=== PATIENT | male | born 1975 | race Caucasian/White ===

== ENCOUNTER 2016-10-17 08:43 | Emergency (ER) | payer OTHER ==
[~2016-10-17] VITALS: Ht 170.2 cm; Wt 80.5 kg
[2016-10-17 08:44] VITALS: Ht 170.2 cm; Wt 80.5 kg
[2016-10-17] MEDS ORDERED: SOD CHLORIDE 0.9% 1,000 ML IV STA (09:28)
[2016-10-17] MEDS ORDERED: CEFTRIAXONE 1 GM/50 ML (PMX) 50 ML IVPB ONE (09:30)
[2016-10-17] MEDS ORDERED: VANCOMYCIN 1 GM (PMX) 250 ML IVPB SCH (09:30)
[2016-10-17] MEDS ORDERED: IBUPROFEN 600 MG TAB PO ONE (09:30)
--- NOTE | 2016-10-17 09:37 | ERA ---
ER Documentation Chief Complaint Date/Time DATE: 10/17/16 TIME: 09:34 Chief Complaint L foot abcess and swelling x 2 days HPI 41-year-old man complains of left lower extremity swelling, redness, pain 2 days. He has a history of Gbnmkgw-Ljgqi-Xaxmd syndrome and has chronic bilateral lower extremity paresthesias and generalized weakness. He has had tactile fevers 1 day, no vomiting or diarrhea, no chest pain or shortness of breath, no cough or sore throat, no URI symptoms. ROS All systems reviewed and are negative except as per history of present illness. Medications Home Meds No Active Prescriptions or Reported Meds Allergies Allergies: Coded Allergies: No Known Allergy (Unverified , 10/17/16) PMhx/Soc Lxwbkmr-Ptqog-Qkjpc syndrome and chronic bilateral lower extremity paresthesias and weakness FmHx Family History: No diabetes Physical Exam Vitals Vital Signs Date Time Temp Pulse Resp B/P Pulse Ox O2 Delivery O2 Flow Rate FiO2 10/17/16 11:50 99.6 104 20 129/66 99 Room Air 10/17/16 10:25 99.8 104 20 126/80 99 Room Air 10/17/16 08:44 99.2 122 20 134/77 99 Physical Exam GENERAL: Well-developed, well-nourished, febrile, in no apparent distress HEENT: Moist mucous membranes, pink conjunctiva, no cervical spine tenderness or step-off deformities, no goiter, no jaundice or icterus, extraocular movements intact without pain. No submandibular induration, and no pharyngeal erythema NEURO: Alert and oriented 3, cranial nerves II through XII intact bilaterally, pupils equal round reactive to light, no focal deficits or facial asymmetry, sensation intact distally Strength 5/5 in upper and lower extremities bilaterally CARDIAC: Tachycardic and regular no murmurs rubs or gallops LUNGS: Clear bilaterally no wheezing crackles or stridor ABDOMEN: Soft nontender, no guarding, no rigidity, no rebound, no psoas sign no obturator sign. Normoactive bowel sounds SKIN: Warm and dry to touch, there is diffuse induration and skin erythema to the anterior lower leg with a superficial ulceration, which is most likely the cause of his cellulitis. No purulent drainage, no lacerations, distal pulses equal bilateral EXTREMITIES: No clubbing cyanosis, right lower extremity appears unremarkable, left lower extremity is indurated and edematous. Distal pulses equal and bilateral PSYCH: Normal affect without agitation or irritability Result Diagram: 10/17/1635 10/17/1635 Results 24 hrs Laboratory Tests Test 10/17/16 09:35 White Blood Count 13.010^3/ul Red Blood Count 4.9210^6/ul Hemoglobin 14.0g/dl Hematocrit 42.3% Mean Corpuscular Volume 86.0fl Mean Corpuscular Hemoglobin 28.5pg Mean Corpuscular Hemoglobin Concent 33.1g/dl Red Cell Distribution Width 13.9% Platelet Count 31746^3/UL Mean Platelet Volume 11.1fl Neutrophils % 87.0% Lymphocytes % 4.5% Monocytes % 7.1% Eosinophils % 0.5% Basophils % 0.2% Nucleated Red Blood Cells % 0.0/100WBC Neutrophils # 11.310^3/ul Lymphocytes # 0.610^3/ul Monocytes # 0.910^3/ul Eosinophils # 0.110^3/ul Basophils # 0.010^3/ul Nucleated Red Blood Cells # 0.010^3/ul Prothrombin Time 13.3Sec Prothrombin Time Ratio 1.0 INR International Normalized Ratio 1.01 Sodium Level 139mmol/L Potassium Level 4.2mmol/L Chloride Level 97mmol/L Carbon Dioxide Level 25mmol/L Anion Gap 21 Blood Urea Nitrogen 11mg/dl Creatinine 0.73mg/dl Glucose Level 208mg/dl Calcium Level 9.0mg/dl Total Bilirubin 0.4mg/dl Direct Bilirubin 0.00mg/dl Indirect Bilirubin 0.4mg/dl Aspartate Amino Transf (AST/SGOT) 22IU/L Alanine Aminotransferase (ALT/SGPT) 38IU/L Alkaline Phosphatase 124IU/L Total Protein 7.4g/dl Albumin 3.7g/dl Globulin 3.70g/dl Albumin/Globulin Ratio 1.00 Lipase 19U/L Current Medications Medications (Trade) Dose Ordered Sig/Warren Route PRN Reason Start Time Stop Time Status Last Admin Dose Admin Sodium Chloride (NS) 1,000 ml @ 1,000 mls/hr Q1H STAT IV 10/17/16 09:28 10/17/16 10:27 DC 10/17/16 10:08 Ibuprofen 600 mg 600 mg ONCE ONCE PO 10/17/16 09:30 10/17/16 09:31 DC 10/17/16 10:08 Ceftriaxone Sodium 50 ml @ 100 mls/hr ONCE ONCE IVPB 10/17/16 09:30 10/17/16 09:59 DC 10/17/16 10:18 Vancomycin HCl (Vancocin) 250 ml @ 125 mls/hr ONCE IVPB 10/17/16 09:30 10/17/16 11:29 DC 10/17/16 11:41 Procedures/MDM IV line was established patient was placed on cardiac monitor technician rhythm strip revealed a sinus rhythm at about 80 bpm with upright P and T waves. Patient was febrile, blood cultures have been ordered results are pending I will follow- up. I do not suspect sepsis. I administered 1 L normal saline intravenously, ibuprofen 600 mg p.o., ceftriaxone 1 g IV, vancomycin 1 g IV. X-ray left Tib/Fib 2V Interpreted by me: Bones: No fracture Joints: No dislocation Foreign body: None Chest X-ray 1V Interpreted by me: Soft Tissue: No acute abnormalities Bones: No acute abnormalities Mediastinum/Cardiac Silhouette/Lungs: No acute abnormalities CBC and electrolytes were normal, liver function tests were normal. Patient is without complaints of pain at this time although he will require inpatient management for IV antibiotics to treat a fairly extensive left lower extremity cellulitis. His health insurance directed into a nearby hospital and I spoke to the physician there and they accepted the patient for transfer to [facility]. Departure Diagnosis: Primary Impression: Left leg cellulitis Additional Impression: Lkcrdph-Ftnhd-Hspzn disease Condition: MAGALY Nguyen MD October 17, 2016 09:37
--- NOTE | 2016-10-17 10:03 | RADRPT ---
PROCEDURE: Chest Radiograph. CLINICAL INDICATION: Chest pain. Abdominal pain. TECHNIQUE: Single frontal chest radiograph. COMPARISON: None available FINDINGS: The cardiomediastinal silhouette is within normal limits. No infiltrate or effusion is seen. Th e bones are intact. IMPRESSION: 1. Unremarkable chest radiograph. RPTAT: AA .Tu Foster MD, MD Date Time Electronically viewed and signed by .Tu Foster MD, on 10/17/2016 10:03 .B/
--- NOTE | 2016-10-17 10:04 | RADRPT ---
PROCEDURE: XR Tibia and Fibula. CLINICAL INDICATION: Left lower leg pain. TECHNIQUE: Two views of the left tibia and fibula are available for review. COMPARISON: None available FINDINGS: There is normal mineralization and alignment of the bones of the left tibia and fibula. There is no evidence of acute fracture or dislocation. The suboptimally visualized joint spaces appear grossly within normal limits. The soft tissues are unremarkable. IMPRESSION: 1. Unremarkable left tibia and fibula x-ray series. RPTAT: AA .Tu Foster MD, MD Date Time Electronically viewed and signed by .Tu Foster MD, on 10/17/2016 10:04 .B/
[2016-10-17 10:24] LABS: ADD SCAN DIFF NO
[2016-10-17 10:42] LABS: ABNORMAL IP MESSAGE 1; BASOPHILS % 0.2 % (0.0-2.0); EOSINOPHILS # 0.1 10^3/ul (0.0-0.5); EOSINOPHILS % 0.5 % (0.0-7.0); HEMATOCRIT 42.3 % (42.0-52.0); LYMPHOCYTES # 0.6 10^3/ul (0.8-2.9); LYMPHOCYTES % 4.5 % (15.0-51.0); MEAN CORPUSCULAR HEMOGLOBIN 28.5 pg (29.0-33.0); MEAN CORPUSCULAR HGB CONC 33.1 g/dl (32.0-37.0); MEAN PLATELET VOLUME 11.1 fl (7.4-10.4); MONOCYTE # 0.9 10^3/ul (0.3-0.9); MONOCYTES % 7.1 % (0.0-11.0); NEUTROPHIL # 11.3 10^3/ul (1.6-7.5); PLATELET COUNT 251 10^3/UL (140-415); RED BLOOD COUNT 4.92 10^6/ul (4.70-6.10); RED CELL DISTRIBUTION WIDTH 13.9 % (11.5-14.5)
[2016-10-17 10:52] LABS: ALBUMIN 3.7 g/dl (3.3-4.9); INR 1.01; PROTIME 13.3 Sec (12.2-14.2)
[2016-10-17 10:53] LABS: POTASSIUM 4.2 mmol/L (3.5-5.1)
[2016-10-17 10:55] LABS: BILIRUBIN,INDIRECT 0.4 mg/dl (0-1.1); BILIRUBIN,TOTAL 0.4 mg/dl (0.2-1.3); CREATININE 0.73 mg/dl (0.61-1.24); TOTAL PROTEIN 7.4 g/dl (6.1-8.1)
[2016-10-17 11:50] VITALS: BP 129/66; PULSE 104; RESP 20; TEMP 99.6
== END 2016-10-17 12:30 | disposition short-term general hospital (02) ==
LOC: E/R 08:43
DX: L02.612 Cutaneous abscess of left foot (principal); G60.0 Hereditary motor and sensory neuropathy; R07.9 Chest pain, unspecified
CPT/HCPCS: 71010; 73590; 80053; 83690; 85025; 85610; 87040; J0696; J3370; J7030; Z7610; 36415; 96374; 96375

== ENCOUNTER 2017-05-21 12:23 | Emergency (ER) | payer OTHER ==
[~2017-05-21] VITALS: Ht 157.5 cm; Wt 89.0 kg
[2017-05-21 12:26] VITALS: Ht 157.5 cm; Wt 89.0 kg
[2017-05-21] MEDS ORDERED: DIPHTH/TET/ACEL PERTUSS (ADULT) 0.5 ML VIAL IM ONE (13:30)
--- NOTE | 2017-05-21 14:29 | RADRPT ---
PROCEDURE: CT Brain without. CLINICAL INDICATION: Head injury, pain. TECHNIQUE: A CT of the brain was performed on multidetector high-resolution CT scanner utilizing a xial sections from the skull base through the vertex without contrast. The scan was reviewed in sof t tissue brain and high frequency resolution bone algorithm windows. Images were reviewed on a high -resolution PACS workstation. One or more the following does reduction techniques were utilized: Aut omated exposure control, adjustment of the mA/ or kV according to patient's size, or use of iterativ e reconstruction technique. The exam CTDI = 44.33 mGy and the DLP = 720.23 mGy-cm. DICOM images are available. COMPARISON: None available. FINDINGS: The ventricles and sulci are age-appropriate. There is no intracranial hemorrhage, mass effect or mi dline shift. No abnormal intra-axial or extra-axial fluid collections are seen. The bonilla/white rob er differentiation is preserved. No acute skull abnormality is noted. The visualized paranasal sinus es are essentially clear. Left frontal scalp swelling and hematoma are noted without underlying skul l fracture. IMPRESSION: 1. No acute intracranial hemorrhage, transcortical infarction or mass effect. 2. Left frontal scalp swelling and hematoma without underlying skull fracture. RPTAT: HFN .Shea Auguste MD, MD Date Time Electronically viewed and signed by .Shea Auguste MD, MD on 05/21/2017 14:29 .N/
[2017-05-21] MEDS ORDERED: ACET500C5 PO (14:57)
[2017-05-21] MEDS ORDERED: LIDOCAINE 1% (MDV) 20 ML INJ SC ONE (15:00)
--- NOTE | 2017-05-21 15:13 | ERD ---
ER Documentation Chief Complaint Chief Complaint lac on top head HPI Patient is a 42-year-old male who presents ED for concerns of a laceration to his frontal scalp which occurred approximately 1 hour prior to arrival. Patient states he was unplugging a machine when the plug prongs hit him in the scalp and cut his head. Patient denies any headache, nausea, vomiting, acute confusion, excessive sleepiness or loss of consciousness. Patient denies any neck pain or back pain. Patient does not recall his last tetanus vaccination. Patient denies any fevers, chills, abdominal pain, chest pain, shortness of breath. ROS All systems reviewed and are negative except as per history of present illness. Medications Home Meds Active Scripts Acetaminophen* (Tylophen*) 500 Mg Capsule, 1 CAP PO Q6H Y for PAIN AND OR ELEVATED TEMP, #20 CAP Prov:STEF DELATORRE PA-C 05/21/17 Allergies Allergies: Coded Allergies: No Known Allergy (Unverified , 05/21/17) PMhx/Soc History of Surgery: Yes (right knee surgery) Anesthesia Reaction: No Hx Neurological Disorder: No Hx Respiratory Disorders: No Hx Cardiac Disorders: No Hx Psychiatric Problems: No Hx Miscellaneous Medical Probl: Yes (charcott dis) Hx Alcohol Use: No Hx Substance Use: No Hx Tobacco Use: No Physical Exam Vitals Vital Signs Date Time Temp Pulse Resp B/P Pulse Ox O2 Delivery O2 Flow Rate FiO2 05/21/17 12:26 98.1 91 20 140/67 99 Physical Exam GENERAL: Well-developed, well-nourished female. Appears in no acute distress. HEAD: Normocephalic, atraumatic. No deformities or ecchymosis. No periorbital ecchymosis noted bilaterally. Scalp hematoma noted at laceration site. EYE: Pupils equal, round, and reactive to light. EOMs intact. No conjunctival erythema. No eye discharge. ENT: External ear without any masses or tenderness. Auditory canals clear bilaterally. No hemotympanum noted bilaterally. TM visualized bilaterally, non -erythematous, non-bulging. Nasal mucosa pink with no discharge. Oropharynx is pink without any tonsillar erythema or exudates. No uvula deviation. No kissing tonsils. No mastoid tenderness or ecchymosis noted bilaterally. NECK: Supple. No meningismus. Normal ROM of the neck. No cervical midline tenderness noted. LUNG: Clear to auscultation bilaterally. No rhonchi, wheezing, rales or coarse breath sounds. HEART: Regular rate and rhythm. No murmurs, rubs or gallops. BACK: No midline tenderness. EXTREMITIES: Equal pulses bilaterally. No peripheral clubbing, cyanosis or edema. No unilateral leg swelling. NEUROLOGIC: Alert and oriented x3, cooperative. Mood and affect appropriate to situation. Cranial nerves II through XII are grossly intact. Normal speech. Motor exam: 5/5 strength in upper and lower extremities. Sensory exam: Sensation intact to light touch on all four extremities. Cerebellar function exam: Rapid alternating movements intact. No dysmetria on qtihom-mg-fvbl test. Steady gait. No pronator drift. SKIN: Normal color. V shaped 2 cm laceration noted in the left mid dental scalp. Minimal bleeding. Results 24 hrs Current Medications Medications (Trade) Dose Ordered Sig/Warren Route PRN Reason Start Time Stop Time Status Last Admin Dose Admin Diphtheria/ Tetanus/Acell Pertussis (Adacel) 0.5 ml ONCE ONCE IM 05/21/17 13:30 05/21/17 13:31 DC 05/21/17 13:36 Lidocaine (Xylocaine 1% (Mdv) 20 ml) 20 ml ONCE ONCE SC 05/21/17 15:00 05/21/17 15:01 DC Procedures/MDM ED COURSE: The patient was stable throughout ED course. I kept the patient and/or family informed of laboratory and diagnostic imaging results throughout the ED course. DIAGNOSTIC IMAGING: Read by radiologist. Patient: JUAN MANUEL MACHADO : 1975 Age: 42 Sex: M MR #: [id number] DOS: 05/21/17 1311 Ordering MD: STEF DELATORRE PA-C Location: [facility] Room/Bed: PROCEDURE: CT Brain without. CLINICAL INDICATION: Head injury, pain. TECHNIQUE: A CT of the brain was performed on multidetector high-resolution CT scanner utilizing axial sections from the skull base through the vertex without contrast. The scan was reviewed in soft tissue brain and high frequency resolution bone algorithm windows. Images were reviewed on a high- resolution PACS workstation. One or more the following does reduction techniques were utilized: Automated exposure control, adjustment of the mA/ or kV according to patient's size, or use of iterative reconstruction technique. The exam CTDI = 44.33 mGy and the DLP = 720.23 mGy-cm. DICOM images are available. COMPARISON: None available. FINDINGS: The ventricles and sulci are age-appropriate. There is no intracranial hemorrhage, mass effect or midline shift. No abnormal intra-axial or extra- axial fluid collections are seen. The bonilla/white matter differentiation is preserved. No acute skull abnormality is noted. The visualized paranasal sinuses are essentially clear. Left frontal scalp swelling and hematoma are noted without underlying skull fracture. IMPRESSION: 1. No acute intracranial hemorrhage, transcortical infarction or mass effect. 2. Left frontal scalp swelling and hematoma without underlying skull fracture. RPTAT: HFN .Shea Auguste MD, MD Date Time Electronically viewed and signed by .Shea Auguste MD, MD on 05/21/2017 14: 29 .N/ CC: STEF DELATORRE PA-C PROCEDURES: Laceration Repair: The patient was verbally consented prior to procedure. Patient was explained the risks, benefits and alternatives to this procedure. Length: 2 cm, V shaped lac in mid/left frontal scalp Irrigation: Thorough irrigation was performed with normal saline and adequate pressure. Inspection: The wound was thoroughly explored and no foreign bodies, deep tissue , tendon or structural injuries were noted. Anesthesia: 4 cc Repair: The area was prepared and draped in the usual sterile manner with the wound exposed. 4 anahy were placed with good wound closure and wound approximation. Bleeding was minimal. The patient tolerated the procedure well with no complications. The wound was dressed with sterile gauze. The patient was neurovascularly intact post-procedure. Post-procedural wound care was discussed with the patient. MEDICATIONS GIVEN: Tdap Patient tolerated medication well with no adverse reactions. MEDICAL DECISION MAKING: This is a 42-year-old male presents to the ED for concerns of a scalp laceration which occurred prior to his arrival. Patient was unplugging a machine when the plug prongs hit him in the scalp. Patient reports minimal bleeding. Patient denies any nausea, vomiting, headache, blurry vision or loss of consciousness. Vital signs were reviewed. Patient was afebrile. CT scan of the brain showed no acute intracranial hemorrhage, transcortical infarction or mass-effect. Left frontal scalp swelling and hematoma without underlying skull fracture was noted. Laceration repair was completed using 4 anahy. The patient had good wound closure and wound approximation. Patient tolerated wound closure without any complications. Tetanus vaccination was updated. This time, patient's presentation is most consistent with scalp laceration. Low suspicion for intracranial hemorrhage, intracranial mass, skull fracture, neck injury. PRESCRIPTIONS: Tylenol DISCHARGE: At this time, the patient is stable for discharge and outpatient management. Check head injury return precautions were discussed. Post-procedural wound care was discussed with the patient. The patient has been advised to return to the ER in 2 days for a wound check. I have instructed the patient to promptly return to the ER for any new or worsening symptoms including increasing pain, fever, warmth, redness or swelling. The patient and/or family expressed understanding of and agreement with this plan. All questions were answered. Home care instructions were provided. Disclaimer: Inadvertent spelling and grammatical errors are likely due to EHR/ dictation software use and do not reflect on the overall quality of patient care. Also, please note that the electronic time recorded on this note does not necessarily reflect the actual time of the patient encounter. Departure Diagnosis: Primary Impression: Laceration Additional Impression: Head injury Encounter type: initial encounter Qualified Code: S09.90XA - Injury of head , initial encounter Condition: Stable Patient Instructions: HEAD INJURY, No Wake-Up (Adult), Laceration, Scalp Additional Instructions: Wound recheck advised 2 days. Strict head injury return precautions discussed. Call your primary care doctor TOMORROW for an appointment during the next 1-2 days.See the doctor sooner or return here if your condition worsens before your appointment time. STEF DELATORRE PA-C May 21, 2017 15:13
== END 2017-05-21 15:02 | disposition home or self-care (01) ==
LOC: FTE 12:23
DX: S01.01XA Laceration without foreign body of scalp, initial encounter (principal); W26.8XXA Contact with other sharp object(s), not elsewhere classified, initial encounter; Y92.9 Unspecified place or not applicable; Z23 Encounter for immunization
CPT/HCPCS: 12001; 70450; 90471; 90715; Z7502; Z7610

== ENCOUNTER 2017-05-23 14:54 | Emergency (ER) | END 2017-05-23 15:02 | disposition home or self-care (01) ==

== ENCOUNTER 2017-05-30 08:36 | Emergency (ER) | END 2017-05-30 10:30 | disposition home or self-care (01) ==